=== PATIENT | female | born 1995 | race Caucasian/White ===

== ENCOUNTER → 2020-06-02 08:50 | Outpatient (BNVA) | payer MEDICAID, SELFPAY | PROVIDERS: Visit Provider Obstetrics & Gynecology | DX: O21.9 Vomiting of pregnancy, unspecified (principal); Z3A.01 Less than 8 weeks gestation of pregnancy | CPT/HCPCS: 99202 ==

== ENCOUNTER 2020-06-17 13:25 | Outpatient (REF) | payer OTHER, SELFPAY ==
[2020-06-18 08:04] LABS: BV Int Neg Control Negative (Negative); BV Int Pos Control Positive (Positive)
[2020-06-19 06:38] LABS: C. trachomatis RNA TMA DETECTED (NOT DETECTED)
[2020-06-19 15:23] LABS: N. gonorrhoeae RNA TMA NOT DETECTED (NOT DETECTED)
== END 2020-06-17 13:26 | disposition home or self-care (01) ==
LOC: HO.LAB 13:25
PROVIDERS: Visit Provider Advanced Practice Midwife
DX: O21.9 Vomiting of pregnancy, unspecified (principal); Z3A.01 Less than 8 weeks gestation of pregnancy; N89.8 Other specified noninflammatory disorders of vagina
CPT/HCPCS: 82710; 87480; 87491; 87510; 87591; 87660; 99212

== ENCOUNTER 2020-06-23 15:01 | Outpatient (REF) | payer OTHER, SELFPAY ==
--- NOTE | 2020-06-23 15:09 | US_ITS ---
EXAMINATION: FIRST TRIMESTER OB ULTRASOUND CLINICAL INFORMATION: Unknown LMP. Check size and dates. COMPARISON: None TECHNIQUE: Transabdominal imaging using a C5-C1/OB early transducer FINDINGS: There is an intrauterine gestational sac. [place]-rump length measures 1.8 cm suggesting gestational age of 8 weeks 2 days with estimated date of delivery of 01/31/2021. heart rate is 176 bpm. There is a yolk sac. The maternal ovaries are normal-appearing. There is no fluid in the pelvis. US/US OB <= 14 weeks fetus IMPRESSION: Single viable intrauterine . From today's measurements, gestational age is estimated at 8 weeks 2 days with estimated date of delivery of 01/31/2021.
== END 2020-06-23 15:02 | disposition home or self-care (01) ==
LOC: HO.HMGCX 15:01
PROVIDERS: Visit Provider Advanced Practice Midwife
DX: O26.841 Uterine size-date discrepancy, first trimester (principal); Z3A.08 8 weeks gestation of pregnancy
CPT/HCPCS: 76801

== ENCOUNTER → 2020-06-26 09:59 | Outpatient (BNVA) | payer OTHER, SELFPAY | PROVIDERS: PCP Nurse Practitioner Family; Visit Provider Advanced Practice Midwife | DX: Z76.89 Persons encountering health services in other specified circumstances (principal) | CPT/HCPCS: 99212 ==

== ENCOUNTER 2020-07-07 08:22 | Outpatient (REF) | payer OTHER, SELFPAY ==
[2020-07-07 09:39] LABS: MANUAL DIFF FLAG NO
[2020-07-07 09:55] LABS: Basophils Absolute Auto 0.1 X10*3/uL (0.0-0.2); Basophils Percent Auto 0.5 % (0-2); Eosinophils Absolute Auto 0.1 X10*3/uL (0.0-0.4); Eosinophils Percent Auto 0.9 % (0-4); Hematocrit 44.4 % (37-47); Hemoglobin 14.5 g/dl (12.0-16.0); Imm Gran Abs Auto 0.25 X10*3/uL (0.00-0.03); Imm Gran Pct Auto 2.5 % (0.0-0.4); Lymphocytes Absolute Auto 1.8 X10*3/uL (1.2-4.9); Lymphocytes Percent Auto 18.5 % (20-40); Mean Corpuscular HGB Conc 32.7 g/dl (31.0-35.0); Mean Corpuscular Volume 88.8 fL (80-98); Mean Platelet Volume 10.9 fL (9.4-12.3); Monocytes Absolute Auto 0.7 X10*3/uL (0.1-1.2); Monocytes Percent Auto 7.3 % (2-11); Neutrophils Absolute Auto 6.9 X10*3/uL (2.0-8.3); Neutrophils Percent Auto 70.3 % (45-73); Platelet Count 244 X10*3/uL (160-400); Red Cell Distribution Width 13.1 % (11.0-16.0); White Blood Count 9.9 X10*3/uL (4.8-10.8)
[2020-07-07 10:14] LABS: HIV AB/AG Nonreactive (Nonreactive); HIV Num 1 0.13 S/CO (0.00-0.99); ~HepC Num1 0.08 S/CO (0.00-0.79); ~Hepatitis C Antibody Nonreactive (Nonreactive)
[2020-07-07 10:16] LABS: Syphilis Screen Nonreactive (Nonreactive)
[2020-07-07 10:18] LABS: Hepatitis B Surface Antigen Negative (Negative)
[2020-07-07 11:29] LABS: Amphetamine Screen Urine Not Detected (Not Detect); Barbiturates, Urine Not Detected (Not Detect); Benzodiazepines Screen Urine Not Detected (Not Detect); Cannabinoid Screen Urine Not Detected (Not Detect); Cocaine Screen Urine Not Detected (Not Detect); Opiate Screen Urine Not Detected (Not Detect); Phencyclidine Screen Urine Not Detected (Not Detect)
[2020-07-08 12:17] LABS: Rubella IgG Antibody 3.54 Index
[2020-07-09 09:02] LABS: C. trachomatis RNA TMA NOT DETECTED (NOT DETECTED); N. gonorrhoeae RNA TMA NOT DETECTED (NOT DETECTED)
== END 2020-07-07 08:23 | disposition home or self-care (01) ==
LOC: HO.LAB 08:22
PROVIDERS: Visit Provider Advanced Practice Midwife
DX: O21.9 Vomiting of pregnancy, unspecified (principal); Z3A.01 Less than 8 weeks gestation of pregnancy
CPT/HCPCS: 80307; 85025; 86762; 86780; 86787; 86803; 86850; 86900; 86901; 87086; 87340; 87389; 87491; 87591

== ENCOUNTER 2020-07-07 15:03 | Emergency (ER) | payer OTHER, SELFPAY | END 2020-07-07 18:59 | disposition left against medical advice (07) | PROVIDERS: Emergency Provider Emergency Medicine | DX: R11.10 Vomiting, unspecified (principal) ==

== ENCOUNTER 2020-07-15 12:59 | Outpatient (REF) | payer OTHER, SELFPAY ==
[2020-07-16 09:32] LABS: BV Int Neg Control Negative (Negative); BV Int Pos Control Positive (Positive)
[2020-07-17 05:32] LABS: C. trachomatis RNA TMA NOT DETECTED (NOT DETECTED); N. gonorrhoeae RNA TMA NOT DETECTED (NOT DETECTED)
== END 2020-07-15 13:00 | disposition home or self-care (01) ==
LOC: HO.LAB 12:59
PROVIDERS: PCP Nurse Practitioner Family; Visit Provider Advanced Practice Midwife
DX: O21.9 Vomiting of pregnancy, unspecified (principal); O98.811 Other maternal infectious and parasitic diseases complicating pregnancy, first trimester; A74.9 Chlamydial infection, unspecified; Z3A.11 11 weeks gestation of pregnancy
CPT/HCPCS: 36415; 81003; 87480; 87491; 87510; 87591; 87624; 87660; 88141; 88142; 99212

== ENCOUNTER 2020-07-15 16:11 | Outpatient (REF) | payer OTHER, SELFPAY ==
--- NOTE | 2020-07-15 16:16 | US_ITS ---
EXAMINATION: US OB CLINICAL INFORMATION: No heart tones and office. COMPARISON: Ultrasound OB 06/23/2020. TECHNIQUE: Transabdominal ultrasound of the pelvis was performed. FINDINGS: There is intrauterine gestational sac, pole and motion. The heart rate is 163 bpm. Yolk sac is not visualized. evaluation was not performed. The cervix is closed. Incidental finding of trace amount of subchorionic bleed seen measuring 1.6 x 0.7 x 0.3 cm. The right ovary measures 3.0 x 2.0 cm with a corpus luteal cyst measuring 1.9 x 1.6 x 1.8 cm. Left ovary measures 3.0 x 1.9 x 2.8 cm. US/US OB limited IMPRESSION: Single live intrauterine fetus with a heart rate of 163 bpm. There is trace subchorionic bleed measuring 1.6 cm in length. The cervix is long and closed.
== END 2020-07-15 16:12 | disposition home or self-care (01) ==
LOC: HO.US 16:11
PROVIDERS: Visit Provider Advanced Practice Midwife
DX: Z34.91 Encounter for supervision of normal pregnancy, unspecified, first trimester (principal)
CPT/HCPCS: 76815

== ENCOUNTER 2020-07-18 12:47 | Outpatient (REF) | payer OTHER, SELFPAY ==
--- NOTE | 2020-07-18 12:53 | US_ITS ---
EXAMINATION: OBSTETRICAL ULTRASOUND, FIRST TRIMESTER HISTORY: 24-year-old at 12.5 weeks of gestation NT screening COMPARISON: 07/15/2020 TECHNIQUE: Real time transabdominal imaging with color and M-mode Doppler. FINDINGS: A single, live IUP CRL of 60.0 mm c/w 12.4wks is noted. Heart Rate: 155 beats per minute. Normal yolk sac seen. NT was 1.0.mm. NB Present No evidence of subchorionic hematoma Both maternal ovaries are seen and appear normal. GESTATIONAL AGE: 1. Established GA: 11.5 wks 2. GA from [facility]: 12.4 wks ESTIMATED DATE OF DELIVERY: 1. Established [facility]: 02/01/2021 2. [facility] US/US OB 1T nuc measure IMPRESSION: 1. A single live IUP 2. Size equals dates 3. NT of 1.0 mm MFM Consultation: I reviewed the ultrasound findings along with significance of NT measurement. The NT of less than 3mm is generally reassuring. However, the sensitivity for T21 detection is only 60%. I reviewed the availability of serum aneuploidy screening which includes cell-free DNA and placental protein based tests. I discussed the sensitivity, false-positive rate, and other limitations associated with each test. I also reviewed the availability of invasive diagnostic tests that are associated small but definite risk of miscarriage. We also reviewed the differences between screening tests and diagnostic tests. After our discussion, she opted for the First trimester screening that is based on cell-free DNA or non-invasive testing (NIPT). The result will be faxed to your office in approximately 7 days. A follow up at 18 weeks for survey has been scheduled. Thank you very much for this referral. Total Time spent 20 (2,12,6) min.
== END 2020-07-18 12:48 | disposition home or self-care (01) ==
LOC: HO.US 12:47
PROVIDERS: PCP Nurse Practitioner Family; Visit Provider Advanced Practice Midwife
DX: O69.3XX0 Labor and delivery complicated by short cord, not applicable or unspecified (principal); Z3A.12 12 weeks gestation of pregnancy
CPT/HCPCS: 76813

== ENCOUNTER 2020-07-31 14:29 | Outpatient (REF) | payer OTHER, SELFPAY ==
[2020-07-31 18:01] LABS: Appearance Urine CLEAR; Color Urine YELLOW; Glucose Urine UA NEG (NEG); Leukocyte Esterase Urine NEG (NEG); Nitrite Urine NEG (NEG); Specific Gravity - Urine 1.015 (1.005-1.025); Urine Blood 1+ (NEG); Urine Ketones NEG (NEG); Urine Protein NEG (NEG-TRACE)
[2020-07-31 18:05] LABS: Amorphous Sediment Urine 1+ /LPF; Bacteria Urine 1+ /LPF; RBC Urine 0-2 /HPF (0); Squamous Epithelial Cell Urine 1+ /LPF; WBC Urine 0 /HPF (0-4)
== END 2020-07-31 14:30 | disposition home or self-care (01) ==
LOC: HO.LAB 14:29
PROVIDERS: Visit Provider Advanced Practice Midwife
DX: O26.891 Other specified pregnancy related conditions, first trimester (principal); R10.30 Lower abdominal pain, unspecified; Z3A.13 13 weeks gestation of pregnancy
CPT/HCPCS: 81001; 81003; 87086; 99212

== ENCOUNTER → 2020-08-12 13:03 | Outpatient (BNVA) | payer OTHER, SELFPAY | PROVIDERS: Visit Provider Advanced Practice Midwife | DX: Z36.3 Encounter for antenatal screening for malformations (principal); Z3A.01 Less than 8 weeks gestation of pregnancy | CPT/HCPCS: 81003; 90471; 90715; 99212 ==

== ENCOUNTER 2020-09-05 12:48 | Outpatient (REF) | payer OTHER, SELFPAY ==
--- NOTE | ~2020-09-05 | US_ITS ---
EXAMINATION: US OBSTETRICAL CLINICAL INFORMATION: 25-year-old at 18.5 weeks of gestation Suspected anomaly COMPARISON: 07/18/2020 TECHNIQUE: Real-time transabdominal ultrasound was performed using C1-5 megahertz transducer. FINDINGS: A single, active, fetus is seen in transverse presentation. The placenta is posterior without previa, and the amniotic fluid volume is wnl. MEASUREMENTS: 1. Biparietal Diameter: 4.1 cm; 18.3 wks 2. Occipital Frontal Diameter: 5.5 cm 3. Head Circumference: 15.9 cm; 18.6 wks 4. Abdominal Circumference: 13.6 cm; 19.1 wks 5. Femur Length: 3.5 cm; 21.0 wks 6. Humerus Length: 2.8 cm; 19.0 wks 7. Tibia Length: 2.9 cm; 20.3 wks 8. Ulna Length: 2.9 cm; 20.6 wks 9. Lateral ventricle: 0.61 cm 10. Cerebellum: 1.82 cm; 19.0 wks 11. Cisterna Magna: 0.26 cm 12. Nuchal Fold: 4.4 mm 13. Heart Rate: 135 beats per minute Rt ovary: normal Lt ovary: normal Cervical length 5.4 cm on T/A. GESTATIONAL AGE: 1. Established GA: 18.5 wks 2. GA from [facility]: 19.3 wks ESTIMATED DATE OF DELIVERY: 1. Established [facility]: 02/01/2021 2. [facility] from [facility]: 01/27/2021 ANATOMY: The visualized anatomy includes but not limited to: 1. Cranium: Normal 2. Intracranial anatomy: cavum septum pellucidi, lateral ventricles, choroid plexus, cerebellum, posterior fossa, third and fourth ventricles. 3. face: orbits, lip/palate, profile, nasal bone 4. Heart: four-chamber view of the heart, ventricular septum, foramen ovale, pulmonary vein, left and right outflow tracts, three-vessel view, 3 vessel trachea view, aortic and ductal arches, situs.. 5. Diaphragm: Normal 6. Abdominal wall: Normal 7. Cord Insertion: Normal 8. Spine: Cervical, thoracic, lumbar, sacral. 9. Stomach: Normal size and shape 10. Right Kidney: Normal 11. Left Kidney: Normal 12. 3 vessel cord: Normal 13. Upper extremity: Open hands, fifth digit. 14. Lower extremity: Tibia, fibula, bilateral feet. 15. Bladder: Normal 16. Genitalia: Male, patient aware US/US OB /maternal detail IMPRESSION: 1. Single, living, intrauterine with appropriate biometry. 2. Normal survey DISCUSSION: I reviewed today's ultrasound findings. We discussed the limitations of ultrasound in diagnosing aneuploidy and other congenital abnormalities. I reviewed the differences between screening test and diagnostic test. Amniocentesis was discussed and declined. She was informed that the baseline incidence of congenital abnormalities is approximately 3-5%. Not all these conditions are diagnosable in utero. RECOMMENDATIONS: No further ultrasound has been scheduled today. Thank you for allowing me to participate in her care. Total time 20 minutes. The time spent was devoted to counseling the patient about the disease and diagnosis, coordinating care including reviewing her records, pertinent lab data and studies, as well as discussing diagnostic evaluation and workup, plan therapeutic interventions and future disposition of care. This includes any additional research needed to obtain further information in formulating the plan of care of this patient. This note was generated with a voice recognition program. Please excuse any errors which may have been overlooked during my review of this note. Sometimes these errors may affect the content or meaning of a given sentence.
== END 2020-09-05 12:49 | disposition home or self-care (01) ==
LOC: HO.US 12:48
PROVIDERS: Visit Provider Advanced Practice Midwife
DX: Z36.3 Encounter for antenatal screening for malformations (principal); Z3A.01 Less than 8 weeks gestation of pregnancy
CPT/HCPCS: 76811

== ENCOUNTER → 2020-09-12 14:12 | Outpatient (BNVA) | payer OTHER, SELFPAY | PROVIDERS: Visit Provider Obstetrics & Gynecology | DX: Z3A.19 19 weeks gestation of pregnancy (principal) | CPT/HCPCS: 81003; 99212 ==

== ENCOUNTER 2020-09-12 15:10 | Emergency (ER) | payer OTHER, SELFPAY ==
--- NOTE | ~2020-09-12 | US_ITS ---
EXAMINATION: US VENOUS ULTRASOUND WITH DOPPLER LOWER EXTREMITY, BILATERAL CLINICAL INFORMATION: Chest pain and elevated d-dimer COMPARISON: None TECHNIQUE: Ultrasound of the deep veins is performed from the hip to the calf with compression sonography and color and pulse Doppler assessment. Spectral analysis with color-flow imaging is performed. FINDINGS: RIGHT: There is normal venous compression and respiratory variation and augmented flow. The visualized common femoral vein, superficial femoral vein, profunda femoral vein, popliteal vein, and the trifurcation region shows no evidence of deep venous thrombosis. There is no significant popliteal fossa cyst. LEFT: There is normal venous compression and respiratory variation and augmented flow. The visualized common femoral vein, superficial femoral vein, profunda femoral vein, popliteal vein, and the trifurcation region shows no evidence of deep venous thrombosis. There is no significant popliteal fossa cyst. If the patient's symptoms persist, followup ultrasound in 5 days 7 days might be of value to exclude proximal propagation from a non-visualized calf vein. US/US venous duplex LE BI IMPRESSION: No DVT demonstrated in the lower extremities.
--- NOTE | ~2020-09-12 | CT_ITS ---
EXAMINATION: CT ANGIOGRAM OF THE CHEST WITH AND WITHOUT CONTRAST (CT PULMONARY ANGIOGRAM FOR PE) CLINICAL INFORMATION: Reason for Exam +/status post COVID, elevated D-dimer, Cp/ ro PE COMPARISON: None TECHNIQUE: Prior to contrast administration, noncontrast localization images were obtained. Subsequently, multidetector volumetric imaging was performed from the thoracic inlet to below the diaphragms following the administration of 80 mL Omnipaque 350 intravenous contrast. No contrast reaction reported Sagittal, coronal, and MIP oblique sagittal reformatted images were obtained on the CT workstation, uploaded to PACS, and reviewed. This CT examination was performed using dose optimization techniques as appropriate, variously including the following: *Automated exposure control *Adjustment of mA and/or kV according to patient size (this includes techniques or standardized protocols for targeted exams where dose is matched to indication/reason for exam; i.e. extremities or head) *Use of iterative reconstruction technique Total exam dose-length product 325 mGy-cm Dense material is present in the stomach and esophagus which produces significant artifact degrading the study. FINDINGS: QUALITY OF STUDY/CONTRAST BOLUS: Satisfactory. PULMONARY ARTERIES: No central or segmental pulmonary emboli. THORACIC AORTA: No aneurysm or dissection. LUNG: No focal consolidation, nodules or masses. PLEURA: No pleural effusion or pneumothorax. MEDIASTINUM: Normal heart size. No pericardial effusion. No hilar or mediastinal lymphadenopathy. No evidence of septal bowing or right heart strain. CHEST WALL/AXILLA: No axillary or internal mammary lymphadenopathy. OSSEOUS STRUCTURES: No acute or suspicious osseous abnormality. UPPER ABDOMEN: Dense presumably barium is present within the stomach and esophagus producing marked artifact. A hypodensity is partially visualized in the liver that measures at least 1.2 cm in diameter. This is most likely a cyst but measures -44 Hounsfield units but this is not reliable because of marked artifact. No reflux of contrast into the hepatic veins to suggest elevated right heart pressures. CT/CT angio chest PE protocol IMPRESSION: 1. No evidence of pulmonary emboli. 2. No evidence of pulmonary infiltrates. 3. Hypodensity in the liver as described above, partially visualized VTE: negative
[2020-09-12 15:25] VITALS: BP 119/69; PULSE 117; RESP 18; TEMP 36.8; O2SAT 99; BMI 20.7
--- NOTE | 2020-09-12 15:27 | ECG_ITS ---
Test Reason : CHEST PAIN Blood Pressure : / mmHG Vent. Rate : 110 BPM Atrial Rate : 110 BPM P-R Int : 128 ms QRS Dur : 076 ms QT Int : 336 ms P-R-T Axes : 062 070 037 degrees QTc Int : 454 ms Sinus tachycardia Possible Left atrial enlargement Borderline ECG No previous ECGs available Referred By: Generic ED Physician Electronically Signed By:SHAZIA RAY MD
[2020-09-12 16:34] LABS: MANUAL DIFF FLAG NO
[2020-09-12 16:39] LABS: Basophils Percent Auto 0.4 % (0-2); Eosinophils Absolute Auto 0.1 X10*3/uL (0.0-0.4); Eosinophils Percent Auto 0.9 % (0-4); Hematocrit 38.2 % (37-47); Hemoglobin 12.5 g/dl (12.0-16.0); Imm Gran Pct Auto 4.5 % (0.0-0.4); Lymphocytes Absolute Auto 1.8 X10*3/uL (1.2-4.9); Lymphocytes Percent Auto 19.5 % (20-40); Mean Corpuscular HGB Conc 32.7 g/dl (31.0-35.0); Mean Corpuscular Hemoglobin 29.6 pg (27.0-33.0); Mean Corpuscular Volume 90.3 fL (80-98); Neutrophils Absolute Auto 5.7 X10*3/uL (2.0-8.3); Neutrophils Percent Auto 63.7 % (45-73); Platelet Count 201 X10*3/uL (160-400); Red Blood Count 4.23 X10*6/uL (4.20-5.50); Red Cell Distribution Width 13.5 % (11.0-16.0)
[2020-09-12 17:04] LABS: Anion Gap 12 (12-20); Blood Urea Nitrogen 8 mg/dL (9-16); Carbon Dioxide 26 mmol/L (22-29); Chloride 105 mmol/L (96-108); Creatinine Clr Calc Pharmacy 143.9; Estimated Glomerular Filt Rate > 60; Glucose Random 94 mg/dL (60-115); Potassium 3.7 mmol/L (3.3-5.1); Sodium 139 mmol/L (135-145)
[2020-09-12 17:12] LABS: B Type Natriuretic Peptide < 10 pg/mL (<100); Troponin-I High Sensitivity < 3.5 ng/L (<3.5-17.0)
--- NOTE | 2020-09-12 19:19 | ED.SOB ---
HPI - SOB/Dyspnea General Chief Complaint: Dyspnea Stated Complaint: SOB/Chest pain Time Seen by Provider: 09/12/20 19:17 Source: patient Mode of arrival: ambulatory Limitations: no limitations History of Present Illness HPI Narrative: 25-year-old female who is currently 19 weeks gestation presenting to complaint of chest pain. She was seen in gynecology office today and during routine follow-up stated she was having some chest pain she is again 19 weeks gestation and she also had COVID on August 21 during which time she went to [facility] and she reports they did COVID test as well as blood work to make sure she had no blood clots along with a chest x-ray which was ?fine? and she was sent home. States she felt okay she feels better in terms of her upper respiratory symptoms but started having chest pain over the past couple days. MD elicited complaint: chest pain Onset (ago): day(s) Timing: intermittent Severity: mild Exacerbating factors: movement Relieving factors: nothing Associated symptoms: chest pain Treatment prior to arrival: none Related Data Previous Rx's Medication Instructions Recorded prenat.vits,leny,tor-dtcl-sbriz 1 tab PO BEDTIME #30 tab 06/02/20 pyridoxine (vitamin B6) 25 mg 25 mg PO TID #90 tab 06/02/20 tablet Allergies Allergy/AdvReac Type Severity Reaction Status Date / Time No Known Allergies Allergy Verified 10/08/20 09:17 Review of Systems Review of Systems: Constitutional: No Weight loss, No Fever, No Chills, No Night Sweats, No Fatigue, No Malaise ENT/Mouth: No Hearing loss, No Ear Pain, No Nasal Congestion, No Sinus Pain, No Hoarseness, No sore throat, No Rhinorrhea, No Swallowing Difficulty Eyes: No Eye Pain, No Swelling, No Redness, No Foreign Body, No Discharge, No Vision Changes Cardiovascular: + Chest Pain, No SOB, No Dyspnea on Exertion, No Orthopnea, No Edema, No Palpitations Respiratory: No Cough, No Sputum, No Wheezing, No Smoke Exposure, No Dyspnea Gastrointestinal: No Nausea, No Vomiting, No Diarrhea, No Constipation, No abdominal Pain, No Hematochezia, No Melena Genitourinary: no irregular bleeding, No Dysuria, No Urinary Frequency, No Hematuria, No Urinary Incontinence, No Urgency, No Flank Pain, No Urinary Flow Changes, No Hesitancy Musculoskeletal: No joint pain, No Myalgias, No Joint Swelling Skin: No Skin Lesions, No rash Neuro: No Weakness, No Numbness, No Paresthesias, No Loss of Consciousness, No Dizziness, No Headache Psych: No Social Issues Heme/Lymph: No Bruising, No Bleeding,No Lymphadenopathy Endocrine: No Polyuria, No Polydipsia, No Temperature Intolerance Yes all other systems are reviewed and are negative [facility] Past Medical History Medical History History of pulmonary edema Surgical History History of appendectomy Family History Family History Maternal Grandmother Diabetes Mother No problems noted. Father No problems noted. Maternal Grandmother No problems noted. Maternal Grandfather No problems noted. Paternal Grandmother No problems noted. Paternal Grandfather No problems noted. Social History Social History Household Members: Family and Children Alcohol intake: never Smoking Status: Never smoker Sexual orientation: Straight/Heterosexual Gender identity: female Physical Exam Vital Signs: Vital Signs: Last Vital Signs Temp 99.1 F 09/12/20 19:45 Pulse 117 H 09/12/20 19:45 Resp 18 09/12/20 22:56 BP 136/78 09/12/20 19:45 Pulse Ox 98 09/12/20 19:45 Body Mass Index 20.7 Reviewed Const: General: cooperative and healthy appearing; No acute distress or intoxicated appearing Nutritional Appearance: average body habitus Orientation/consciousness: patient oriented x3 HENMT: Head: Yes normal to inspection Ears: hearing grossly normal bilaterally Eyes: General: appearance normal, both eyes and all related structures Visual Dueñas: normal visual dueñas by confrontation Neck: Neck: Yes normal visual inspection, No positive Brudzinski's sign, No positive Kernig's sign and No tender Thyroid: Thyroid normal Chest: Chest palpation & inspection: normal inspection of the chest and tenderness costochondral junction Resp: Effort & Inspection: normal respiratory effort Auscultation: clear to auscultation bilaterally Cardio: Jugular venous distension: no JVD Rhythm: regular rhythm Heart sounds: S1 normal heart sound present and S2 normal heart sound present GI: Inspection: Yes normal to inspection Palpation (GI): Soft to palpation Percussion: Yes normal to percussion Auscultation: normal bowel sounds : General: Yes no CVA tenderness Back/Spine/Pelvis: Back: no CVA tenderness Skin: General skin exam: no rashes or lesions noted Neuro: General: patient oriented x3 Extrem: General: Yes normal to inspection Course Reevaluation(s) Reevaluation #1: Labs overall stable aside from marginal elevation D-dimer does V/Q scan was pursued however not available at this facility patient offered transfer to [facility] however she declined this CT was done here this was unremarkable. She otherwise is resting comfortably has no -related complaints. She is well nontoxic appearing. Will follow up on outpatient basis. Consultations Consultation #1: Case discussed with OBGYN Dr. Shahid Recommendation for V/Q scan if not available for CTA chest the preferred V/Q scan however aware that at this time of the night there is no V/Q scan available offered to be transferred to appropriate center where this is available Aware the patient does not want to be transfer and risks versus benefits of having a CTA versus abuse issue and the difference in amount radiation reviewed with her and she would like to proceed here. Patient consented MDM - SOB/Dyspnea Medical Records Attestation: I reviewed the patient's medical records. Lab Data Attestation: I reviewed the patient's lab results. Result diagrams: 09/12/20 16:21 09/12/20 16:21 Labs: Lab Results 09/12/20 09/12/20 09/12/20 Range/Units 16:21 16:21 16:21 WBC 9.0 (4.8-10.8) X10*3/uL RBC 4.23 (4.20-5.50) X10*6/uL Hgb 12.5 (12.0-16.0) g/dl Hct 38.2 (37-47) % MCV 90.3 (80-98) fL MCH 29.6 (27.0-33.0) pg MCHC 32.7 (31.0-35.0) g/dl RDW 13.5 (11.0-16.0) % Plt Count 201 (160-400) X10*3/uL MPV 11.0 (9.4-12.3) fL Immature Gran % (Auto) 4.5 H (0.0-0.4) % Neut % (Auto) 63.7 (45-73) % Lymph % (Auto) 19.5 L (20-40) % [place] % (Auto) 11.0 (2-11) % Eos % (Auto) 0.9 (0-4) % Baso % (Auto) 0.4 (0-2) % Lymph # (Auto) 1.8 (1.2-4.9) X10*3/uL [place] # (Auto) 1.0 (0.1-1.2) X10*3/uL Eos # (Auto) 0.1 (0.0-0.4) X10*3/uL Baso # (Auto) 0.0 (0.0-0.2) X10*3/uL Abs Immat Gran (auto) 0.40 H (0.00-0.03) X10*3/uL Absolute Neuts (auto) 5.7 (2.0-8.3) X10*3/uL Absolute Nucleated RBC 0.000 (0.0-0.012) X10*3/uL Nucleated RBC % (auto) 0.0 (0.0-0.2) /100WBC PT 11.3 (10.8-13.0) SEC INR 1.0 (0.9-1.1) APTT 29.1 (24.1-38.0) SEC D-Dimer 263 NG/ML Hold Blue Top SEE NOTE Sodium 139 (135-145) mmol/L Potassium 3.7 (3.3-5.1) mmol/L Chloride 105 (96-108) mmol/L Carbon Dioxide 26 (22-29) mmol/L Anion Gap 12 (12-20) BUN 8 L (9-16) mg/dL Creatinine 0.53 (0.5-1.4) mg/dL Estim Creat Clear Calc 143.9 Estimated GFR > 60 Random Glucose 94 (60-115) mg/dL Calcium 9.0 (8.4-10.2) mg/dL Total Bilirubin 0.4 (0.0-1.0) mg/dL Direct Bilirubin < 0.2 (0.0-0.5) mg/dL AST 16 (5-31) U/L ALT 19 (0-31) U/L Alkaline Phosphatase 60 (39-117) U/L Troponin I High Sens (<3.5-17.0) ng/L B-Natriuretic Peptide (<100) pg/mL Total Protein 6.5 (6.5-8.0) g/dL Albumin 3.8 (3.5-5.0) g/dL Urine Color Urine Appearance Urine pH (5.0-8.0) Ur Specific [place] (1.005-1.025) Urine Protein (NEG-TRACE) MG/DL Urine Glucose (UA) (NEG) MG/DL Urine Ketones (NEG) MG/DL Urine Blood (NEG) Urine Nitrite (NEG) Ur Leukocyte Esterase (NEG) Urine RBC (0) /HPF Urine WBC (0-4) /HPF Ur Squamous Epith Cells /LPF Urine Bacteria /LPF 09/12/20 09/12/20 Range/Units 16:21 20:20 WBC (4.8-10.8) X10*3/uL RBC (4.20-5.50) X10*6/uL Hgb (12.0-16.0) g/dl Hct (37-47) % MCV (80-98) fL MCH (27.0-33.0) pg MCHC (31.0-35.0) g/dl RDW (11.0-16.0) % Plt Count (160-400) X10*3/uL MPV (9.4-12.3) fL Immature Gran % (Auto) (0.0-0.4) % Neut % (Auto) (45-73) % Lymph % (Auto) (20-40) % [place] % (Auto) (2-11) % Eos % (Auto) (0-4) % Baso % (Auto) (0-2) % Lymph # (Auto) (1.2-4.9) X10*3/uL [place] # (Auto) (0.1-1.2) X10*3/uL Eos # (Auto) (0.0-0.4) X10*3/uL Baso # (Auto) (0.0-0.2) X10*3/uL Abs Immat Gran (auto) (0.00-0.03) X10*3/uL Absolute Neuts (auto) (2.0-8.3) X10*3/uL Absolute Nucleated RBC (0.0-0.012) X10*3/uL Nucleated RBC % (auto) (0.0-0.2) /100WBC PT (10.8-13.0) SEC INR (0.9-1.1) APTT (24.1-38.0) SEC D-Dimer NG/ML Hold Blue Top Sodium (135-145) mmol/L Potassium (3.3-5.1) mmol/L Chloride (96-108) mmol/L Carbon Dioxide (22-29) mmol/L Anion Gap (12-20) BUN (9-16) mg/dL Creatinine (0.5-1.4) mg/dL Estim Creat Clear Calc Estimated GFR Random Glucose (60-115) mg/dL Calcium (8.4-10.2) mg/dL Total Bilirubin (0.0-1.0) mg/dL Direct Bilirubin (0.0-0.5) mg/dL AST (5-31) U/L ALT (0-31) U/L Alkaline Phosphatase (39-117) U/L Troponin I High Sens < 3.5 (<3.5-17.0) ng/L B-Natriuretic Peptide < 10 (<100) pg/mL Total Protein (6.5-8.0) g/dL Albumin (3.5-5.0) g/dL Urine Color YELLOW Urine Appearance CLEAR Urine pH 5.5 (5.0-8.0) Ur Specific [place] 1.015 (1.005-1.025) Urine Protein NEG (NEG-TRACE) MG/DL Urine Glucose (UA) NEG (NEG) MG/DL Urine Ketones NEG (NEG) MG/DL Urine Blood 1+ H (NEG) Urine Nitrite NEG (NEG) Ur Leukocyte Esterase NEG (NEG) Urine RBC 1-4 (0) /HPF Urine WBC 1-4 (0-4) /HPF Ur Squamous Epith Cells 2+ /LPF Urine Bacteria TRACE /LPF Imaging Data CTA chest: Radiologist's impression: [address] [id number] Scan ReportSigned Patient: Rachel SmartKaren#: [id number]: 1995Acct:[id number]/Sex: 25 / FADM Date: 09/12/20Loc: EDAttending Dr: Ordering Physician: Chuy Brooks NP Date of Service: 09/12/20 Procedure(s): CT angio chest PE protocol Accession Number(s): [id number] cc: Chuy Brooks TRIP MOTOR OPERATOR~ EXAMINATION: CT ANGIOGRAM OF THE CHEST WITH AND WITHOUT CONTRAST (CT PULMONARY ANGIOGRAM FOR PE) CLINICAL INFORMATION: Reason for Exam +/status post COVID, elevated D-dimer, Cp/ ro PE COMPARISON: None TECHNIQUE: Prior to contrast administration, noncontrast localization images were obtained. Subsequently, multidetector volumetric imaging was performed from the thoracic inlet to below the diaphragms following the administration of 80 mL Omnipaque 350 intravenous contrast. No contrast reaction reported Sagittal, coronal, and MIP oblique sagittal reformatted images were obtained on the CT workstation, uploaded to PACS, and reviewed. This CT examination was performed using dose optimization techniques as appropriate, variously including the following: *Automated exposure control *Adjustment of mA and/or kV according to patient size (this includes techniques or standardized protocols for targeted exams where dose is matched to indication/reason for exam; i.e. extremities or head) *Use of iterative reconstruction technique Total exam dose-length product 325 mGy-cm Dense material is present in the stomach and esophagus which produces significant artifact degrading the study. FINDINGS: QUALITY OF STUDY/CONTRAST BOLUS: Satisfactory. PULMONARY ARTERIES: No central or segmental pulmonary emboli. THORACIC AORTA: No aneurysm or dissection. LUNG: No focal consolidation, nodules or masses. PLEURA: No pleural effusion or pneumothorax. MEDIASTINUM: Normal heart size. No pericardial effusion. No hilar or mediastinal lymphadenopathy. No evidence of septal bowing or right heart strain. CHEST WALL/AXILLA: No axillary or internal mammary lymphadenopathy. OSSEOUS STRUCTURES: No acute or suspicious osseous abnormality. UPPER ABDOMEN: Dense presumably barium is present within the stomach and esophagus producing marked artifact. A hypodensity is partially visualized in the liver that measures at least 1.2 cm in diameter. This is most likely a cyst but measures -44 Hounsfield units but this is not reliable because of marked artifact. No reflux of contrast into the hepatic veins to suggest elevated right heart pressures. CT/CT angio chest PE protocol IMPRESSION: 1. No evidence of pulmonary emboli. 2. No evidence of pulmonary infiltrates. 3. Hypodensity in the liver as described above, partially visualized VTE: negative Dictated By:SHEREEN SANCHEZ MDSigned By:<Electronically signed by SHEREEN SANCHEZ MD in OV>09/12/202220 DD/ 22TD/TT: Special Education Inclusion Teacher: EMILE Bilateral lower extremity ultrasound: Radiologist's impression: [address] [id number] ReportSigned Patient: Juan Daniel Smrat#: [id number]: 1995Acct:[id number]/Sex: M Date: 09/12/20Loc: EDAttending Dr: Ordering Physician: Chuy Brooks NP Date of Service: 09/12/20 Procedure(s): US venous duplex LE BI Accession Number(s): [id number] cc: Chuy Brooks NP~ EXAMINATION: US VENOUS ULTRASOUND WITH DOPPLER LOWER EXTREMITY, BILATERAL CLINICAL INFORMATION: Chest pain and elevated d-dimer COMPARISON: None TECHNIQUE: Ultrasound of the deep veins is performed from the hip to the calf with compression sonography and color and pulse Doppler assessment. Spectral analysis with color-flow imaging is performed. FINDINGS: RIGHT: There is normal venous compression and respiratory variation and augmented flow. The visualized common femoral vein, superficial femoral vein, profunda femoral vein, popliteal vein, and the trifurcation region shows no evidence of deep venous thrombosis. There is no significant popliteal fossa cyst. LEFT: There is normal venous compression and respiratory variation and augmented flow. The visualized common femoral vein, superficial femoral vein, profunda femoral vein, popliteal vein, and the trifurcation region shows no evidence of deep venous thrombosis. There is no significant popliteal fossa cyst. If the patient's symptoms persist, followup ultrasound in 5 days 7 days might be of value to exclude proximal propagation from a non-visualized calf vein. US/US venous duplex LE BI IMPRESSION: No DVT demonstrated in the lower extremities. Dictated By:SHEREEN SANCHEZ MDSigned By:<Electronically signed by SHEREEN SANCHEZ MD in OV>09/12/202135 DD/ 36TD/TT: Special Education Inclusion Teacher: EMILE Discharge Plan Discharge Clinical Impression: Atypical chest pain Patient Disposition: Home, Self-Care Instructions: Chest Pain (ED), Costochondritis (ED) Additional Instructions: Your blood test to check for blood clot was very minimally elevated and given her history of and previously shaila COVID And your complaint of chest pain we did extensive workup to make sure that there are no evidence of blood clot this includes The ultrasound of both her legs did not show any evidence of blood clot The CT scan of the chest did not show any evidence of blood clot The pain that you are having likely is from musculoskeletal and follow supportive care for home as discussed Return if any concerns or worsening symptoms Follow-up with primary care doctor as well as your OBGYN Thank you Prescriptions: No Action prenat.vits,leny,[id number] Tablet 1 tab PO BEDTIME Qty: 30 RF: 9 pyridoxine (vitamin B6) 25 mg tablet 25 mg PO TID Qty: 90 RF: 3 Referrals: ED Physician,Generic [Physician] - 3 days Interventions: ED Discharge Assessment Last Done: 09/13/20 00:33 Discharge Date/Time: 09/13/20 00:33
[2020-09-12 19:28] LABS: Prothrombin Time 11.3 SEC (10.8-13.0)
[2020-09-12 19:30] LABS: Partial Thromboplastin Time 29.1 SEC (24.1-38.0)
[2020-09-12 19:31] LABS: D Dimer 263 NG/ML
[2020-09-12 19:37] LABS: Alanine Aminotransferase 19 U/L (0-31); Albumin Level 3.8 g/dL (3.5-5.0); Alkaline Phosphatase 60 U/L (39-117); Aspartate Amino Transferase 16 U/L (5-31); Bilirubin Direct < 0.2 mg/dL (0.0-0.5); Bilirubin Total 0.4 mg/dL (0.0-1.0); Total Protein 6.5 g/dL (6.5-8.0)
[2020-09-12 19:45] VITALS: BP 136/78; PULSE 117; RESP 20; TEMP 37.3; O2SAT 98
--- NOTE | 2020-09-12 19:49 | PC.NURSE ---
patient a&ox3, pt initially refusing treatment wanting to leave, provider talked her into staying with interpretor at bedside, patient allowed vitals to be obtained and an iv to be inserted and was agreeable to ct scan but nothing else at this time. iv was inserted vitals obtained- pt refusing color television console monitor, will continue to monitor.
--- NOTE | 2020-09-12 20:41 | PC.NURSE ---
patient agreeable to ultrasound/pt transported to us.
--- NOTE | 2020-09-12 20:42 | PC.NURSE ---
per discussion with provider, Doppler will not be attempted due to patient being overwhelmed.
[2020-09-12 20:46] LABS: Glucose Urine UA NEG (NEG); Leukocyte Esterase Urine NEG (NEG); Nitrite Urine NEG (NEG); PH 5.5 (5.0-8.0); Specific Gravity - Urine 1.015 (1.005-1.025); Urine Blood 1+ (NEG); Urine Ketones NEG (NEG); Urine Protein NEG (NEG-TRACE)
[2020-09-12 20:47] LABS: Appearance Urine CLEAR; Color Urine YELLOW
[2020-09-12 21:00] LABS: Bacteria Urine TRACE /LPF; Squamous Epithelial Cell Urine 2+ /LPF
--- NOTE | 2020-09-12 21:47 | PC.NURSE ---
pt to ct scan
--- NOTE | 2020-09-12 22:05 | PC.NURSE ---
patient currently sleeping, significant other at bedside, rr 18, will continue to monitor.
[2020-09-12 22:56] VITALS: RESP 18
== END 2020-09-13 00:33 | disposition home or self-care (01) ==
PROVIDERS: Nurse Practitioner Primary Care; Emergency Provider Internal Medicine
DX: R07.89 Other chest pain (principal); R06.00 Dyspnea, unspecified; R60.0 Localized edema; Z79.899 Other long term (current) drug therapy
CPT/HCPCS: 36415; 71275; 80048; 80076; 81001; 83880; 84484; 85025; 85379; 85610; 85730; 93005; 93970; 99284; Q9967

== ENCOUNTER → 2020-10-08 09:05 | Outpatient (BNVA) | payer OTHER, SELFPAY | PROVIDERS: Visit Provider Advanced Practice Midwife | DX: Z34.90 Encounter for supervision of normal pregnancy, unspecified, unspecified trimester (principal); Z3A.23 23 weeks gestation of pregnancy; Z36.3 Encounter for antenatal screening for malformations; B94.8 Sequelae of other specified infectious and parasitic diseases; M54.32 Sciatica, left side | CPT/HCPCS: 81003; 99212 ==

== ENCOUNTER 2020-10-16 13:53 | Outpatient (REF) | payer OTHER, SELFPAY ==
[2020-10-16 17:33] LABS: Glucose Urine UA NEG (NEG); Leukocyte Esterase Urine NEG (NEG); Nitrite Urine NEG (NEG); PH 6.5 (5.0-8.0); Specific Gravity - Urine 1.015 (1.005-1.025); Urine Blood 1+ (NEG); Urine Ketones NEG (NEG); Urine Protein NEG (NEG-TRACE)
[2020-10-16 18:05] LABS: Appearance Urine CLEAR; Color Urine YELLOW
[2020-10-16 18:20] LABS: Bacteria Urine TRACE /LPF; RBC Urine 0-2 /HPF (0); Squamous Epithelial Cell Urine 2+ /LPF; WBC Urine 0 /HPF (0-4)
== END 2020-10-16 13:54 | disposition home or self-care (01) ==
LOC: HO.LAB 13:53
PROVIDERS: Advanced Practice Midwife; Visit Provider Obstetrics & Gynecology
DX: O26.892 Other specified pregnancy related conditions, second trimester (principal); R10.30 Lower abdominal pain, unspecified; Z3A.24 24 weeks gestation of pregnancy
CPT/HCPCS: 81001; 87086; 99212

== ENCOUNTER 2020-10-17 09:38 | Outpatient (REF) | payer OTHER, SELFPAY ==
--- NOTE | ~2020-10-17 | US_ITS ---
EXAMINATION: OBSTETRICAL ULTRASOUND, Follow up HISTORY: 25-year-old at the 24.5 weeks of gestation High BMI Size greater than dates COMPARISON: 09/05/2020 TECHNIQUE: Real time transabdominal imaging with color and M-mode Doppler. PRESENTATION: Breech PLACENTA LOCATION: Posterior without previa AMNIOTIC FLUID: Normal MEASUREMENTS: 1. Biparietal Diameter: 6.2 cm; 25.0 wks 2. Head Circumference: 23.8 cm; 26.0 wks 3. Abdominal Circumference: 22.6 cm; 27.0 wks 4. Femur Length: 4.7 cm; 25.5 wks 5. Heart Rate: 155 beats per minute WEIGHT: EFW: 915 grams (2 lbs 0 oz) -- 96 %. GESTATIONAL AGE: 1. Established GA: 24.5 wks 2. GA from [facility]: 26.0 wks ESTIMATED DATE OF DELIVERY: 1. Established VELASQUEZ: 02/01/2021 2. VELASQUEZ from [facility]: 01/23/2021 US/US OB follow up IMPRESSION: 1. A single active fetus is in breech presentation 2. Size greater than dates, EFW corresponds to 96th percentile 3. Normal amniotic fluid volume I reviewed the limitations of ultrasound and estimating weights. In addition we discussed the clinical significance of EFW percentile. She has a son was weight was 8 lbs. 10 oz. I informed her that today's examination is not predictive of macrosomia at term. She denies history of diabetes. Suggest the repeat growth in approximately 4 weeks. (Scheduled) Thank you very much for this referral. Total time 20 minutes. The time spent was devoted to counseling the patient about the disease and diagnosis, coordinating care including reviewing her records, pertinent lab data and studies, as well as discussing diagnostic evaluation and workup, plan therapeutic interventions and future disposition of care. This includes any additional research needed to obtain further information in formulating the plan of care of this patient. This note was generated with a voice recognition program. Please excuse any errors which may have been overlooked during my review of this note. Sometimes these errors may affect the content or meaning of a given sentence.
== END 2020-10-17 09:39 | disposition home or self-care (01) ==
LOC: HO.US 09:38
PROVIDERS: Visit Provider Advanced Practice Midwife
DX: O26.842 Uterine size-date discrepancy, second trimester (principal); O98.512 Other viral diseases complicating pregnancy, second trimester; U07.1 COVID-19; Z36.3 Encounter for antenatal screening for malformations; Z3A.24 24 weeks gestation of pregnancy
CPT/HCPCS: 76816

== ENCOUNTER 2020-11-05 09:28 | Outpatient (REF) | payer OTHER, SELFPAY ==
[2020-11-05 12:20] LABS: Hematocrit 38.3 % (37-47); Hemoglobin 12.5 g/dl (12.0-16.0); Mean Corpuscular HGB Conc 32.6 g/dl (31.0-35.0); Mean Corpuscular Hemoglobin 29.7 pg (27.0-33.0); Mean Platelet Volume 10.6 fL (9.4-12.3); Platelet Count 217 X10*3/uL (160-400); Red Blood Count 4.21 X10*6/uL (4.20-5.50); Red Cell Distribution Width 13.4 % (11.0-16.0); White Blood Count 7.9 X10*3/uL (4.8-10.8)
[2020-11-05 12:29] LABS: Glucose Urine UA 500 MG/DL (NEG); Leukocyte Esterase Urine NEG (NEG); Nitrite Urine NEG (NEG); Urine Blood TRACE (NEG); Urine Ketones NEG (NEG); Urine Protein NEG (NEG-TRACE)
[2020-11-05 12:31] LABS: Appearance Urine HAZY; Color Urine YELLOW
[2020-11-05 12:31] LABS: Glucose 1 Hour PP 50gm Dose 181 mg/dL (60-140)
[2020-11-05 12:53] LABS: Syphilis Screen Nonreactive (Nonreactive)
[2020-11-05 13:07] LABS: Bacteria Urine 2+ /LPF; RBC Urine 0-2 /HPF (0); Squamous Epithelial Cell Urine 2+ /LPF; WBC Urine 0-2 /HPF (0-4)
[2020-11-06 01:46] LABS: CT PCR NOT DETECTED (Not Detect.); NG PCR NOT DETECTED (Not Detect.)
== END 2020-11-05 09:29 | disposition home or self-care (01) ==
LOC: HO.LAB 09:28
PROVIDERS: Visit Provider Advanced Practice Midwife
DX: Z36.3 Encounter for antenatal screening for malformations (principal); O21.9 Vomiting of pregnancy, unspecified; Z3A.01 Less than 8 weeks gestation of pregnancy
CPT/HCPCS: 81001; 81003; 85027; 86780; 87491; 87591; 99212

== ENCOUNTER 2020-11-14 12:37 | Outpatient (REF) | payer OTHER, SELFPAY ==
--- NOTE | ~2020-11-14 | US_ITS ---
EXAMINATION: OBSTETRICAL ULTRASOUND, Follow up HISTORY: 25-year-old at the 28.5 weeks of gestation Size date discrepancy COMPARISON: 10/17/2020 TECHNIQUE: Real time transabdominal imaging with color and M-mode Doppler. PRESENTATION: Breech PLACENTA LOCATION: Posterior without previa AMNIOTIC FLUID: LAURA 9.3 cm MEASUREMENTS: 1. Biparietal Diameter: 7.1 cm; 28.5 wks 2. Head Circumference: 28.8 cm; 31.5 wks 3. Abdominal Circumference: 26.3 cm; 30.3 wks 4. Femur Length: 5.5 cm; 29.1 wks 5. Heart Rate: 155 beats per minute WEIGHT: EFW: 1485 grams (3 lbs 4 oz) -- 82 %. GESTATIONAL AGE: 1. Established GA: 28.5 wks 2. GA from [facility]: 30.0 wks ESTIMATED DATE OF DELIVERY: 1. Established VELASQUEZ: 02/01/2021 2. VELASQUEZ from [facility]: 01/23/2021 US/US OB follow up IMPRESSION: 1. A single active fetus is in breech presentation 2. Size equals dates 3. Normal amniotic fluid index Thank you very much for this referral. This note was generated with a voice recognition program. Please excuse any errors which may have been overlooked during my review of this note. Sometimes these errors may affect the content or meaning of a given sentence.
== END 2020-11-14 12:38 | disposition home or self-care (01) ==
LOC: HO.US 12:37
PROVIDERS: Visit Provider Advanced Practice Midwife
DX: Z36.3 Encounter for antenatal screening for malformations (principal)
CPT/HCPCS: 76816

== ENCOUNTER → 2020-11-20 11:09 | Outpatient (BNVA) | payer OTHER, SELFPAY | PROVIDERS: Visit Provider Advanced Practice Midwife | DX: O99.810 Abnormal glucose complicating pregnancy (principal); Z3A.29 29 weeks gestation of pregnancy | CPT/HCPCS: 81003; 99212 ==

== ENCOUNTER 2020-11-26 07:49 | Outpatient (REF) | payer OTHER, SELFPAY ==
[2020-11-26 09:35] LABS: Glucose Fasting 101 mg/dL (60-99)
[2020-11-26 10:07] LABS: Glucose 1 Hour 194 mg/dL
[2020-11-26 11:55] LABS: Glucose 2 Hour 147 mg/dL
[2020-11-26 12:02] LABS: Glucose 3 Hour 183 mg/dL
[2020-11-26 12:07] LABS: Glucose Urine UA 500 MG/DL (NEG); Leukocyte Esterase Urine NEG (NEG); Nitrite Urine NEG (NEG); Specific Gravity - Urine >= 1.030 (1.005-1.025); Urine Blood TRACE (NEG); Urine Ketones NEG (NEG); Urine Protein TRACE MG/DL (NEG-TRACE)
[2020-11-26 12:16] LABS: Appearance Urine HAZY; Color Urine YELLOW
[2020-11-26 12:36] LABS: Bacteria Urine 2+ /LPF; RBC Urine 0-2 /HPF (0); Squamous Epithelial Cell Urine 2+ /LPF
[2020-11-26 13:52] LABS: CT PCR NOT DETECTED (Not Detect.); NG PCR NOT DETECTED (Not Detect.)
== END 2020-11-26 07:50 | disposition home or self-care (01) ==
LOC: HO.LAB 07:49
PROVIDERS: Visit Provider Advanced Practice Midwife
DX: O99.810 Abnormal glucose complicating pregnancy (principal); Z3A.01 Less than 8 weeks gestation of pregnancy
CPT/HCPCS: 81001; 82951; 87491; 87591

== ENCOUNTER → 2020-12-04 14:16 | Outpatient (BNVA) | payer OTHER, SELFPAY | PROVIDERS: Visit Provider Advanced Practice Midwife | DX: O24.419 Gestational diabetes mellitus in pregnancy, unspecified control (principal); Z3A.31 31 weeks gestation of pregnancy | CPT/HCPCS: 81003; 99212 ==

== ENCOUNTER → 2020-12-12 09:27 | Outpatient (BNVA) | payer OTHER, SELFPAY | PROVIDERS: Visit Provider Advanced Practice Midwife | DX: O24.419 Gestational diabetes mellitus in pregnancy, unspecified control (principal); Z3A.32 32 weeks gestation of pregnancy | CPT/HCPCS: 81003; 99212 ==

== ENCOUNTER 2020-12-19 11:49 | Outpatient (REF) | payer OTHER, SELFPAY ==
--- NOTE | ~2020-12-19 | US_ITS ---
EXAMINATION: OBSTETRICAL ULTRASOUND, Follow up HISTORY: 25-year-old at 33.5 weeks of gestation GDM A1 High BMI COMPARISON: 11/14/2020 TECHNIQUE: Real time transabdominal imaging with color and M-mode Doppler. PRESENTATION: Vertex PLACENTA LOCATION: Posterior without previa AMNIOTIC FLUID: 16.4 MEASUREMENTS: 1. Biparietal Diameter: 8.4 cm; 33.6 wks 2. Head Circumference: 31.5 cm; 35.3 wks 3. Abdominal Circumference: 31.4 cm; 35.3 wks 4. Femur Length: 6.7 cm; 34.5 wks 5. Heart Rate: 136 beats per minute WEIGHT: EFW: 2566 grams (5 lbs 11 oz) -- 80 %. BIOPHYSICAL PROFILE: Motion: 2 Tone: 2 Breathin Amniotic Fluid: 2 Total score: 8/8 GESTATIONAL AGE: 1. Established GA: 33.5 wks 2. GA from [facility]: 34.6 wks ESTIMATED DATE OF DELIVERY: 1. Established VELASQUEZ: 02/01/2021 2. VELASQUEZ from [facility]: 01/24/2021 US/US OB follow up IMPRESSION: 1. A single active fetus is in vertex presentation 2. Size equals dates, EFW corresponds to 80th percentile 3. Reassuring biophysical profile Patient does newly diagnosed with gestational diabetes. She is currently on modified diet. Reports that her fasting values are in the upper 90s. Majority of her postprandial values are within normal range. We discussed the increased incidence of macrosomia and hypoglycemia with the suboptimally controlled maternal serum glucose level. Follow-up in approximately 3 weeks is been scheduled. Thank you very much for this referral. Total time 30 minutes. The time spent was devoted to counseling the patient about the disease and diagnosis, coordinating care including reviewing her records, pertinent lab data and studies, as well as discussing diagnostic evaluation and workup, plan therapeutic interventions and future disposition of care. This includes any additional research needed to obtain further information in formulating the plan of care of this patient. This note was generated with a voice recognition program. Please excuse any errors which may have been overlooked during my review of this note. Sometimes these errors may affect the content or meaning of a given sentence.
== END 2020-12-19 11:50 | disposition home or self-care (01) ==
LOC: HO.US 11:49
PROVIDERS: Visit Provider Advanced Practice Midwife
DX: O24.419 Gestational diabetes mellitus in pregnancy, unspecified control (principal); Z3A.33 33 weeks gestation of pregnancy
CPT/HCPCS: 76816

== ENCOUNTER 2023-11-22 10:09 | Outpatient (REF) | payer OTHER, SELFPAY ==
[2023-11-22 10:29] LABS: Hematocrit 36.4 % (37.0-47.0); Hemoglobin 12.1 g/dl (12.0-16.0); Mean Corpuscular HGB Conc 33.2 g/dl (31.0-35.0); Mean Corpuscular Hemoglobin 28.3 pg (27.0-33.0); Mean Corpuscular Volume 85.2 fL (80.0-98.0); Mean Platelet Volume 10.3 fL (9.4-12.3); Platelet Count 186 X10*3/uL (160-400); Red Blood Count 4.27 X10*6/uL (4.20-5.50); Red Cell Distribution Width 13.1 % (11.0-16.0); White Blood Count 5.9 X10*3/uL (4.8-10.8)
[2023-11-22 12:26] LABS: HCG Quantitative < 2 mIU/mL; TSH reflex Free T4 2.23 uIU/mL (0.32-4.0)
[2023-11-23 04:43] LABS: CT PCR DETECTED (Not Detect.); NG PCR NOT DETECTED (Not Detect.)
[2023-11-23 07:38] LABS: Prolactin 5.5 ng/mL
[2023-11-23 09:32] LABS: HBsAGNum1 0.55 S/CO (0.00-0.99); HIV Num 1 2.68 S/CO (0.00-0.99); Hepatitis B Surface Antigen Negative (Negative); ~HepC Num1 0.12 S/CO (0.00-0.79); ~Hepatitis C Antibody Nonreactive (Nonreactive)
[2023-11-23 09:33] LABS: Syphilis Screen Nonreactive (Nonreactive)
[2023-11-23 10:39] LABS: HIV AB/AG Nonreactive (Nonreactive); HIV Num 2 0.05 S/CO; HIV Num 3 0.05 S/CO
[2023-11-23 11:19] LABS: Bacterial Vaginosis PCR POSITIVE (Negative); Candida Group PCR DETECTED (Not Detect); Candida glab krusei PCR NOT DETECTED (Not Detect); Trichomonas vaginalis PCR NOT DETECTED (Not Detect)
== END 2023-11-22 10:10 | disposition home or self-care (01) ==
LOC: HO.LAB 10:09
PROVIDERS: Visit Provider Obstetrics & Gynecology
DX: Z11.4 Encounter for screening for human immunodeficiency virus [HIV] (principal); N93.9 Abnormal uterine and vaginal bleeding, unspecified; A74.9 Chlamydial infection, unspecified
CPT/HCPCS: 0352U; 0353U; 36415; 81025; 84146; 84443; 84702; 85027; 86780; 86803; 87340; 87389; 99212

== ENCOUNTER 2023-11-22 10:29 | Outpatient (AMB) | payer OTHER, SELFPAY ==
--- NOTE | 2023-11-22 11:09 | A.OFFVIS_ITS ---
Vital Signs 11/22/23 11:14 Height 5 ft 6 in Weight 165 lb BMI 26.6 BP 118/76 Intake Visit Reasons: vaginal bleeding Higher Education Administrator Required: Yes Higher Education Administrator Language: Ribbon Winder Name: Mali VIVEROS Information Interpreted: non-clinical & clinical Manager Strategic Alliances: Manager Strategic Alliances Present (Mali VIVEROS) Accompanied by: Self / Same As Patient Allergies No Known Allergies Allergy (Verified 11/22/23 11:15) HPI Comments Details: Presenting complaining of heavy vaginal bleeding over the last 2 days associated with passage of blood clots and pelvic cramping. The patient went to the emergency room at [facility] and was diagnosed with chlamydia but did not tile picker her medication. H&H done today was 12.1/36.4 PFSH Medical History Gestational diabetes History of pulmonary edema Surgical History History of tubal ligation History of appendectomy Family History Maternal Grandmother Diabetes Mother No problems noted. Father No problems noted. Maternal Grandmother No problems noted. Maternal Grandfather No problems noted. Paternal Grandmother No problems noted. Paternal Grandfather No problems noted. Social History Household Members: Family and Children Both parents involved: Yes Alcohol intake: never Sexual orientation: Straight/Heterosexual Gender identity: Female Female Reproductive History Menstrual Age of Menarche: 14 Review of Systems Const All systems reviewed & are unremarkable except as noted in HPI and below Physical Exam Vital Signs: Last Vital Signs BP 118/76 11/22/23 11:14 BMI result Body Mass Index 26.6 General: Yes no CVA tenderness External Female Exam: normal external appearance and normal appearance of the urethra Speculum Exam - Vagina: normal appearance of the vagina, normal palpation, no lesions and no masses Speculum Exam - Cervix: normal appearance of the cervix, normal palpation, no lesions, no masses, nontender and Other cervical findings present (No evidence of active vaginal bleeding) Bimanual exam- vagina & uterus: normal bimanual exam, normal palpation, uterine size normal, normal palpation, uterine shape normal, No Cervical tenderness present and non-tender Bimanual Exam- Adnexa, other: normal adnexae Back/Spine/Pelvis Back: no CVA tenderness Assessment & Plan Assessment & Plan (1) Abnormal uterine bleeding (AUB): Code(s): N93.9 - Abnormal uterine and vaginal bleeding, unspecified Category: Medical Plan: UPT done in the office was negative. Pap smear taken, GC and chlamydia taken CBC, TSH, prolactin, HCG, and pelvic ultrasound ordered. Discussed with the patient the different causes of abnormal bleeding including thyroid disorders, uterine and ovarian pathology and other potential causes. Discussed with the patient the work up including CBC (to r/o anemia), TSH, prolactin, pelvic Ultrasound. Discussed with the patient the options of treatment including control pills , Mirena IUD, cyclic Provera. All pros, cons, risks and benefits if each option was discussed with the patient and the patient decided to go ahead with [facility] so a more detailed discussion re: control pills including mechanism of action, benefits (regular menses, less dysmenorrhea, less risk of ovarian cancer, ...), risks ( DVT, PE, Strokes, [place], ? increased breast ca, others). Instructions were given to use a back- up method for contraception x 1st 2 weeks, and to schedule a 3 months appointment for blood pressure check . All questions answered and the patient verbalized understanding. (2) Chlamydia: Code(s): A74.9 - Chlamydial infection, unspecified Category: Medical Plan: We will treat the patient with doxycycline 100 mg p.o. b.i.d. for 7 days. The patient was instructed to inform her partner(s) to be treated by PCP or will rx with EPT. Instructions given to the patient not to have sexual intercourse till 1 week after both partners are treated. We will screen for other std's, including HIV, RPR, Hep b s Ag and hepatitis-C antibody. Instructions given to patient that the serologies need to be repeated in 6 months because of the possible false negative rate. Instructions given the patient to follow up for a test of cure in 1 -2 weeks . Orders: Orders HIV Ab/Ag Today A74.9 - Chlamydial infection, unspecified Syphilis Screen Today A74.9 - Chlamydial infection, unspecified Hepatitis B Surface Antigen Today A74.9 - Chlamydial infection, unspecified Prolactin Today A74.9 - Chlamydial infection, unspecified, N93.9 - Abnormal uterine and vaginal bleeding, unspecified TSH reflex Free T4 Today A74.9 - Chlamydial infection, unspecified, N93.9 - Abnormal uterine and vaginal bleeding, unspecified US pelvic and transvaginal Today A74.9 - Chlamydial infection, unspecified, N93.9 - Abnormal uterine and vaginal bleeding, unspecified Hepatitis C Antibody Today A74.9 - Chlamydial infection, unspecified HCG Quantitative Today A74.9 - Chlamydial infection, unspecified, N93.9 - Abnormal uterine and vaginal bleeding, unspecified Medications: New doxycycline hyclate 100 mg PO BID 7 days 14 tabs 0RF desogestrel-ethinyl estradiol 0.15-0.03 mg (Apri) 1 tab PO DAILY 28 days 28 tabs 11RF Coding Level of Care Code Est Pt Level 3 (19298) Diagnoses Abnormal uterine bleeding (AUB) N93.9 Chlamydia A74.9
[2023-11-22 11:14] VITALS: BP 118/76; BMI 26.6
== END 2023-11-22 11:29 | disposition home or self-care (01) ==
LOC: HO.HWS 10:29
PROVIDERS: Visit Provider Obstetrics & Gynecology
DX: N93.9 Abnormal uterine and vaginal bleeding, unspecified (principal); A74.9 Chlamydial infection, unspecified; Z32.02 Encounter for pregnancy test, result negative
CPT/HCPCS: 99213

== ENCOUNTER 2023-11-22 11:47 | Outpatient (REF) | payer OTHER, SELFPAY | END 2023-11-22 11:48 | disposition home or self-care (01) | LOC: HO.LNP 11:47 | PROVIDERS: Visit Provider Obstetrics & Gynecology | DX: N93.9 Abnormal uterine and vaginal bleeding, unspecified (principal); A74.9 Chlamydial infection, unspecified | CPT/HCPCS: 88142 ==

== ENCOUNTER 2023-12-14 13:44 | Outpatient (REF) | payer OTHER, SELFPAY ==
--- NOTE | ~2023-12-14 | US_ITS ---
EXAMINATION: US PELVIS CLINICAL INFORMATION: Abnormal uterine and vaginal bleeding, unknown last menstrual period. Vaginal bleeding for 1 month. COMPARISON: None available. TECHNIQUE: Ultrasound of the pelvis is performed using both transabdominal and transvaginal transducers along with Doppler. Transvaginal imaging is performed due to inadequate visualization transabdominally. FINDINGS: The uterus is retroverted and measures 7.9 x 4.7 x 6.0 cm. No discrete fibroids appreciated. Endometrial thickness is 5 mm. No significant free fluid. Prominent adnexal vasculature raises the possibility of pelvic congestion syndrome. Left ovary measures 3.1 x 1.6 x 1.9 cm, volume 4.9 mL, and is grossly unremarkable. Right ovary measures 3.2 x 2.3 x 2.3 cm, volume 8.9 mL. Right ovarian 0.9 x 0.9 x 0.8 cm complex cyst versus solid mass. US/US pelvic and transvaginal IMPRESSION: 1. Endometrial thickness is 5 mm. 2. No discrete fibroids. 3. Right ovarian 0.9 cm complex cyst versus solid mass. Recommend follow up ultrasound in 6-8 weeks. 4. Prominent adnexal vasculature raises the possibility of pelvic congestion syndrome.
== END 2023-12-14 13:45 | disposition home or self-care (01) ==
LOC: HO.US 13:44
PROVIDERS: PCP Internal Medicine; Visit Provider Obstetrics & Gynecology
DX: N93.9 Abnormal uterine and vaginal bleeding, unspecified (principal); A74.9 Chlamydial infection, unspecified
CPT/HCPCS: 76830; 76856

== ENCOUNTER 2023-12-22 08:05 | Outpatient (REF) | payer OTHER, SELFPAY ==
[2023-12-23 11:54] LABS: CT PCR NOT DETECTED (Not Detect.); NG PCR NOT DETECTED (Not Detect.)
== END 2023-12-22 08:06 | disposition home or self-care (01) ==
LOC: HO.LNP 08:05
PROVIDERS: PCP Internal Medicine; Visit Provider Obstetrics & Gynecology
DX: A74.9 Chlamydial infection, unspecified (principal)
CPT/HCPCS: 87491; 87591; 99212

== ENCOUNTER 2023-12-22 08:05 | Outpatient (AMB) | payer OTHER, SELFPAY ==
[2023-12-22 08:06] VITALS: BP 118/70; BMI 26.6
--- NOTE | 2023-12-22 08:06 | MHC.OFFVIS ---
Vital Signs 12/22/23 08:06 Height 5 ft 6 in Weight 165 lb BMI 26.6 BP 118/70 Blood Pressure Location Lt brachial Position Sitting Intake Visit Reasons: SHANE Allergies No Known Allergies Allergy (Verified 12/22/23 08:17) HPI Comments Details: The patient is presenting for a test of cure. The patient took the antibiotics course for chlamydia and BV, doxycycline and metronidazole; she informed her partner who was treated too. The patient reports no intercourse since then. [facility] Medical History Gestational diabetes History of pulmonary edema Surgical History History of tubal ligation History of appendectomy Family History Maternal Grandmother Diabetes Mother No problems noted. Father No problems noted. Maternal Grandmother No problems noted. Maternal Grandfather No problems noted. Paternal Grandmother No problems noted. Paternal Grandfather No problems noted. Social History Household Members: Family and Children Both parents involved: Yes Alcohol intake: never Sexual orientation: Straight/Heterosexual Gender identity: Female Female Reproductive History Menstrual Age of Menarche: 14 control method: pills Date of last pap smear: 11/22/23 History of abnormal pap smear: No History of STI: Yes ( 11/22/23) Review of Systems Const All systems reviewed & are unremarkable except as noted in HPI and below Physical Exam Vital Signs: Last Vital Signs BP 118/70 12/22/23 08:06 BMI result Body Mass Index 26.6 General: Yes no CVA tenderness External Female Exam: normal external appearance and normal appearance of the urethra Speculum Exam - Vagina: normal appearance of the vagina, normal palpation, no lesions and no masses Speculum Exam - Cervix: normal appearance of the cervix, normal palpation, no lesions, no masses and nontender Bimanual exam- vagina & uterus: normal bimanual exam, normal palpation, uterine size normal, normal palpation, uterine shape normal, No Cervical tenderness present and non-tender Bimanual Exam- Adnexa, other: normal adnexae Back/Spine/Pelvis Back: no CVA tenderness Assessment & Plan Assessment & Plan (1) Chlamydia: Comment: For SHANE Code(s): A74.9 - Chlamydial infection, unspecified Category: Medical Plan: GC/CT collected, instructions given the patient to schedule a 3 months follow-up appointment. Coding Level of Care Code Est Pt Level 3 (09420) Diagnoses Chlamydia A74.9
== END 2023-12-22 08:27 | disposition home or self-care (01) ==
LOC: HO.HWS 08:05
PROVIDERS: PCP Internal Medicine; Visit Provider Obstetrics & Gynecology
DX: A74.9 Chlamydial infection, unspecified (principal)
CPT/HCPCS: 99213

== ENCOUNTER 2024-01-05 14:15 | Outpatient (REF) | payer OTHER, SELFPAY ==
[2024-01-06 10:53] LABS: Bacterial Vaginosis PCR NEGATIVE (Negative); Candida Group PCR DETECTED (Not Detect); Candida glab krusei PCR NOT DETECTED (Not Detect); Trichomonas vaginalis PCR NOT DETECTED (Not Detect)
[2024-01-06 11:27] LABS: CT PCR NOT DETECTED (Not Detect.); NG PCR NOT DETECTED (Not Detect.)
== END 2024-01-05 14:16 | disposition home or self-care (01) ==
LOC: HO.LNP 14:15
PROVIDERS: PCP Internal Medicine; Visit Provider Obstetrics & Gynecology
DX: N83.299 Other ovarian cyst, unspecified side (principal); N76.0 Acute vaginitis
CPT/HCPCS: 0352U; 87491; 87591; 99212

== ENCOUNTER 2024-01-05 14:15 | Outpatient (AMB) | payer OTHER, SELFPAY ==
[2024-01-05 14:25] VITALS: BMI 26.3
--- NOTE | 2024-01-05 14:25 | A.OFFVIS_ITS ---
Vital Signs 01/05/24 14:25 Height 5 ft 6 in Weight 163 lb 2.273 oz BMI 26.3 Intake Visit Reasons: U/S results Route Driver [employer] Required: Yes Route Driver [employer] Language: Odd Ticket Clerk Services: Route Driver [employer] Present (in person) Route Driver [employer] Name: Mali Purdy Information Interpreted: non-clinical & clinical Accompanied by: Self / Same As Patient Allergies No Known Allergies Allergy (Verified 01/05/24 14:25) HPI Comments Details: Presenting for ultrasound follow-up showed the following: The uterus is retroverted and measures 7.9 x 4.7 x 6.0 cm. No discrete fibroids appreciated. Endometrial thickness is 5 mm. No significant free fluid. Prominent adnexal vasculature raises the possibility of pelvic congestion syndrome. Left ovary measures 3.1 x 1.6 x 1.9 cm, volume 4.9 mL, and is grossly unremarkable. Right ovary measures 3.2 x 2.3 x 2.3 cm, volume 8.9 mL. Right ovarian 0.9 x 0.9 x 0.8 cm complex cyst versus solid mass. The patient is complaining of vulvovaginal burning, no vaginal discharge or odor. [facility] Medical History Gestational diabetes History of pulmonary edema Surgical History History of tubal ligation History of appendectomy Family History Maternal Grandmother Diabetes Mother No problems noted. Father No problems noted. Maternal Grandmother No problems noted. Maternal Grandfather No problems noted. Paternal Grandmother No problems noted. Paternal Grandfather No problems noted. Social History Household Members: Family and Children Alcohol intake: never Sexual orientation: Straight/Heterosexual Gender identity: Female Female Reproductive History Menstrual Age of Menarche: 14 Review of Systems Const All systems reviewed & are unremarkable except as noted in HPI and below Physical Exam Vital Signs: BMI result Body Mass Index 26.3 General: Yes no CVA tenderness External Female Exam: normal external appearance and normal appearance of the urethra Speculum Exam - Vagina: normal appearance of the vagina, normal palpation, no lesions and no masses Speculum Exam - Cervix: normal appearance of the cervix, normal palpation, no lesions, no masses and nontender Bimanual exam- vagina & uterus: normal bimanual exam, normal palpation, uterine size normal, normal palpation, uterine shape normal, No Cervical tenderness present and non-tender Bimanual Exam- Adnexa, other: normal adnexae Back/Spine/Pelvis Back: no CVA tenderness Assessment & Plan Assessment & Plan (1) Complex ovarian cyst: Code(s): N83.299 - Other ovarian cyst, unspecified side Category: Medical Plan: Discussed with the patient the finding on ultrasound showing a right complex ovarian cyst/solid mass measuring 0.9 cm. Discussed with the patient the Ultrasound findings, the main limitation of transvaginal ultrasonography alone as a diagnostic tool to distinguish benign from malignant masses relates to its lack of specificity and low positive predictive value for cancer. Differential diagnosis discussed with the patient includes but not limited to benign premalignant or malignant ovarian pathology. Recommended pelvic MRI as a next step in the management. Instructions given the patient to schedule a pelvic MRI and a follow-up ultrasound appointment within 2 weeks. All questions were answered & the patient verbalized understanding and agreed with the plan. (2) Vulvovaginitis: Code(s): N76.0 - Acute vaginitis Category: Medical Plan: GC/CT, Bacterial Vaginosis panel taken, Terazol 0.8% q.h.s. for 3 days was sent to the patient's pharmacy. The patient was instructed to call if symptoms don't improve in 48 hours. Orders: Orders MR pelvis wo/w con Today N83.299 - Other ovarian cyst, unspecified side Medications: New terconazole 0.8% 1 appful vaginal BEDTIME 3 days 20 grams 0RF Coding Level of Care Code Est Pt Level 3 (57751) Diagnoses Complex ovarian cyst N83.299 Vulvovaginitis N76.0
== END 2024-01-05 15:28 | disposition home or self-care (01) ==
LOC: HO.HWS 14:15
PROVIDERS: PCP Internal Medicine; Visit Provider Obstetrics & Gynecology
DX: N83.299 Other ovarian cyst, unspecified side (principal); N76.0 Acute vaginitis
CPT/HCPCS: 99213

== ENCOUNTER 2024-02-28 14:41 | Outpatient (REF) | payer OTHER, SELFPAY ==
--- NOTE | ~2024-02-28 | MR_ITS ---
EXAMINATION: MRI PELVIS WITH AND WITHOUT CONTRAST CLINICAL INFORMATION: N83.299 - Other ovarian cyst, unspecified side COMPARISON: Pelvic ultrasound and 12/13/2013 TECHNIQUE: Multiple routine MRI sequences through the pelvis were obtained before and after the uneventful administration of 8 mL of Gadavist gadolinium-based IV contrast. FINDINGS: UTERUS: Anteverted retroflexed uterus has a normal configuration and measures 8 x 5.3 x 5.3 cm (tvyhza-vv-wooeaf x anterior-posterior x transverse). Endometrium is uniform and measures 0.8 cm in thickness. There is junctional zone thickening measuring up to 1.4 cm in thickness in the anterior aspect of the myometrium, though without definite T2/T1 bright foci. No focal uterine mass seen. CERVIX: Unremarkable. VAGINA: Unremarkable. OVARIES: There is a physiologic right ovarian corpus luteum. No suspicious solid or cystic adnexal mass. KIDNEYS AND VISUALIZED UPPER ABDOMEN: Two normally positioned kidneys are seen. Incidentally noted right greater than left extrarenal pelvis disease.. VISUALIZED GI TRACT: Unremarkable. BLADDER: Unremarkable. PELVIC FREE FLUID: No free fluid or ascites. LYMPH NODES: No pathologically enlarged lymph nodes. OSSEOUS STRUCTURES: No acute or suspicious osseous abnormalities. SOFT TISSUES tiny fat-containing umbilical hernia.: Unremarkable. MR/MR pelvis wo/w con IMPRESSION: * There is a physiologic right ovarian corpus luteum. No suspicious solid or cystic adnexal mass. * There is junctional zone thickening measuring up to 1.4 cm in thickness, however without T1/T2 bright foci possibly secondary to transient myometrial contraction, though the other differential would include adenomyosis if clinical history is appropriate. Electronically signed by: Nava Villarreal MD 03/15/2024 02:21 PM EDT
[2024-02-28] MEDS: gadobutroL 10 ML VIAL IVPUSH (15:39)
== END 2024-02-28 14:42 | disposition home or self-care (01) ==
LOC: HO.MRI 14:41
PROVIDERS: PCP Internal Medicine; Visit Provider Obstetrics & Gynecology
DX: N83.299 Other ovarian cyst, unspecified side (principal)
CPT/HCPCS: 72197; A9585

== ENCOUNTER 2024-03-22 14:42 | Outpatient (AMB) | payer OTHER, SELFPAY ==
[2024-03-22 14:46] VITALS: BMI 26.3
--- NOTE | 2024-03-22 14:46 | A.OFFVIS_ITS ---
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 Pelvic MRI done on 02/28/2024 showed the following: IMPRESSION: * There is a physiologic right ovarian corpus luteum. No suspicious solid or cystic adnexal mass. * There is junctional zone thickening measuring up to 1.4 cm in thickness, however without T1/T2 bright foci possibly secondary to transient myometrial contraction, though the other differential would include adenomyosis if clinical history is appropriate. The following workup was done.: H&H= within normal TSH, hCG, GC and chlamydia were negative. Pap smear was done was negative. Pelvic ultrasound showed the following: IMPRESSION: 1. Endometrial thickness is 5 mm. 2. No discrete fibroids. 3. Right ovarian 0.9 cm complex cyst versus solid mass. Recommend follow up ultrasound in 6-8 weeks. 4. Prominent adnexal vasculature raises the possibility of pelvic congestion syndrome. The patient took the control pills for a week and discontinued and since then her menstrual cycle has been regular with no concerns [facility] Medical History Gestational diabetes History of pulmonary edema Surgical History History of tubal ligation History of appendectomy Family History Maternal Grandmother Diabetes Mother No problems noted. Father No problems noted. Maternal Grandmother No problems noted. Maternal Grandfather No problems noted. Paternal Grandmother No problems noted. Paternal Grandfather No problems noted. Social History Household Members: Family and Children Both parents involved: Yes Alcohol intake: never Sexual orientation: Straight/Heterosexual Gender identity: Female Female Reproductive History Menstrual Age of Menarche: 14 Review of Systems Const All systems reviewed & are unremarkable except as noted in HPI and below Reports as per HPI and Reports no additional complaints GI Reports no additional complaints Reports no additional complaints Physical Exam Vital Signs: BMI result Body Mass Index 26.3 Assessment & Plan Assessment & Plan (1) Complex ovarian cyst: Code(s): N83.299 - Other ovarian cyst, unspecified side Category: Medical Plan: Discussed with the patient the results the pelvic MRI showing a right physiologic colpo luteum cyst with no suspicious features, the patient was reassured. All questions answered, the patient verbalized understanding (2) Abnormal uterine bleeding (AUB): Code(s): N93.9 - Abnormal uterine and vaginal bleeding, unspecified Category: Medical Plan: Discussed with the patient the results of the work up done and options of treatment including Lysteda, BCP's, Mirena IUD. All pros, cons, risks and benefits if each option was discussed with the patient and the patient decided to think about it and get back to us in case of recurrence of her abnormal uterine bleeding All questions answered the patient verbalized understanding. Medications: Discontinued desogestrel-ethinyl estradiol 0.15-0.03 mg (Apri) Discontinued Reason: Patient no longer taking 1 tab PO DAILY 28 days 28 tabs 11RF Coding Level of Care Code Est Pt Level 3 (60784) Diagnoses Complex ovarian cyst N83.299 Abnormal uterine bleeding (AUB) N93.9
== END 2024-03-22 15:42 | disposition home or self-care (01) ==
LOC: HO.HWS 14:42
PROVIDERS: PCP Internal Medicine; Visit Provider Obstetrics & Gynecology
DX: N83.299 Other ovarian cyst, unspecified side (principal); N93.9 Abnormal uterine and vaginal bleeding, unspecified
CPT/HCPCS: 99213

== ENCOUNTER → 2024-03-22 14:42 | Outpatient (BNVA) | payer OTHER, SELFPAY | PROVIDERS: PCP Internal Medicine; Visit Provider Obstetrics & Gynecology | DX: N83.299 Other ovarian cyst, unspecified side (principal); N93.9 Abnormal uterine and vaginal bleeding, unspecified | CPT/HCPCS: 99212 ==